=== PATIENT | female | born 1945 | race Caucasian/White ===

== ENCOUNTER → 2018-07-22 08:42 | Outpatient (CLI) | payer OTHER, SELFPAY ==
--- NOTE | 2018-07-22 08:44 | DI.RAD.S_ITS ---
PROCEDURE: XR MANDIBLE MIN 4V INDICATIONS: pain TECHNIQUE: 4 views of the mandible were acquired. COMPARISON: None. FINDINGS: Bones: No fractures or dislocations. No suspicious bony lesions. Asymmetric opacification of the right mastoid air cells compared to the left which could be better evaluated with CT. Soft tissues: Visualized sinuses appear clear. No suspicious soft tissue densities. IMPRESSION: Asymmetric opacification of the right mastoid air cells, technically age-indeterminate and of unclear clinical significance. Otherwise, unremarkable examination. If the patient's pain or symptoms persist recommend further evaluation with maxillofacial CT. Dictated by: Carloz Alicea M.D. on 07/22/2018 at 9:31 Approved by: Carloz Alicea M.D. on 07/22/2018 at 9:41
--- NOTE | 2018-07-22 08:44 | DI.RAD.S_ITS ---
PROCEDURE: XR CERVICAL SPINE 2V OR 3V INDICATIONS: pain TECHNIQUE: 4 view(s) of the cervical spine were acquired. COMPARISON: None. FINDINGS: Bones: No fractures or dislocations to the C7 level. The lateral masses of C1 appear intact on the odontoid view. No suspicious bony lesions. Chronic posterior paraspinal soft tissue ossification. Multilevel degenerative endplate sclerosis and spurring. Diffuse facet arthropathy. Diffuse mild narrowing of the cervical disc spaces. There is moderate narrowing of the C5-C6 disc space. Soft tissues: No prevertebral soft tissue swelling. Carotid atherosclerotic plaques incidentally noted. IMPRESSION: Diffuse mild to moderate cervical spondylosis and facet arthropathy. Dictated by: Carloz Alicea M.D. on 07/22/2018 at 9:41 Approved by: Carloz Alicea M.D. on 07/22/2018 at 9:42
== END ==
PROVIDERS: Family Provider Family Medicine; PCP Family Medicine; Visit Provider Family Medicine
DX: M54.2 Cervicalgia (principal); M47.812 Spondylosis without myelopathy or radiculopathy, cervical region; R68.84 Jaw pain
CPT/HCPCS: 70110; 72040

== ENCOUNTER → 2020-03-19 08:25 | Outpatient (CLI) | payer OTHER, SELFPAY ==
[2020-03-19 09:03] LABS: Add Manual Diff / Slide Review NO; Basophils Absolute Auto 0 /uL (0-100); Basophils Percent Auto 0.6 % (0-2); Eosinophils Absolute Auto 0 /uL (0-450); Eosinophils Percent Auto 0.5 % (2-4); Hematocrit 36.4 % (36-46); Hemoglobin 12.5 g/dL (12.0-16.0); Lymphocytes Absolute Auto 1500 /uL (1100-4500); Lymphocytes Percent Auto 31.7 % (25-40); Mean Corpuscular HGB Conc 34.2 % (30-36); Mean Corpuscular Hemoglobin 28.7 PG (26-34); Monocytes Absolute Auto 1100 /uL (0-900); Monocytes Percent Auto 23.7 % (3-14); Neutrophils Absolute Auto 2000 /uL (1500-7000); Neutrophils Percent Auto 43.5 % (50-75); Platelet Count 219 X10^3/uL (150-400); Red Blood Cell Count 4.34 X10^6/uL (4.0-5.2); Red Cell Distribution Width 14.1 % (11.6-14.8); White Blood Cell Count 4.7 X10^3/uL (4.5-11.0)
[2020-03-19 09:34] LABS: Alanine Aminotransferase 16 IU/L (<35); Albumin 4.4 g/dL (3.5-5.0); Albumin Globulin Ratio 1.3 (1.0-2.8); Alkaline Phosphatase 84 U/L (38-126); Aspartate Aminotransferase 28 IU/L (14-36); BUN Creatinine Ratio 18.5 (6-22); Bilirubin Total 0.6 mg/dL (0.2-1.3); Blood Urea Nitrogen 15 mg/dL (7-17); Calcium 9.9 mg/dL (8.4-10.2); Carbon Dioxide 33 mmol/L (22-32); Chloride 99 mmol/L (98-107); Cholesterol 198 mg/dL (140-199); Estimated Glomerular Filt Rate > 60.0 mL/min (>60); Globulin 3.5 g/dL (1.7-4.1); Glucose 112 mg/dL (80-110); HDL Cholesterol 50 mg/dL (40-60); HEMOLYSIS < 15 (0-50); LDL Cholesterol Calculated 111 mg/dL (<100); Potassium 3.8 mmol/L (3.4-5.1); Sodium 138 mmol/L (137-145); Total Protein 7.9 g/dL (6.3-8.2); Triglycerides 183 mg/dL (35-150)
[2020-03-19 10:43] LABS: Creatinine Urine Random 37.9 mg/dL
[2020-03-19 10:48] LABS: Microalbumi Creatinin Ratio Ur 50.1 ug/mg CR (<30); Microalbumin Urine Random 1.9 mg/dL (0-1.6)
[2020-03-19 10:52] LABS: C-Reactive Protein Quant 1.1 mg/dL (<1.0); Uric Acid 8.4 mg/dL (2.5-6.2)
[2020-03-19 11:20] LABS: Erythrocyte Sedimentation Rate 30 MM/HR (0-20)
== END ==
PROVIDERS: Family Provider Family Medicine; PCP Family Medicine; Referring Provider Family Medicine; Visit Provider Family Medicine
DX: I10 Essential (primary) hypertension (principal); I49.1 Atrial premature depolarization; Z13.220 Encounter for screening for lipoid disorders; M10.9 Gout, unspecified
CPT/HCPCS: 36415; 80053; 80061; 82043; 82570; 84550; 85025; 85651; 86140

== ENCOUNTER → 2021-02-03 18:18 | Outpatient (CLI) | payer OTHER, SELFPAY ==
--- NOTE | 2021-02-03 18:20 | DI.RAD.S_ITS ---
PROCEDURE: XR KUB INDICATIONS: L kidney stone TECHNIQUE: One view of the abdomen acquired. COMPARISON: None. FINDINGS: Surgical changes and devices: None. Bowel: Bowel gas pattern is normal. Soft tissues: 3 separate calcifications project over the lower pole the right kidney, largest measures 1.1 x 0.6 cm additional 3 mm calculus projects over the upper pole the left kidney. Surgical clips present in the right upper quadrant. Convex right thoracolumbar scoliosis present. Bones: No suspicious bony lesions. IMPRESSION: 1. Calculi projecting over the lower pole the right kidney and upper pole the left kidney may reflect renal calculi or fecal debris. Consider follow-up CT Approved by: Travis iXe M.D. on 02/03/2021 at 18:00
== END ==
PROVIDERS: Family Provider Family Medicine; PCP Family Medicine; Referring Provider Physician Assistant; Visit Provider Physician Assistant
DX: N20.0 Calculus of kidney (principal); R10.9 Unspecified abdominal pain
CPT/HCPCS: 74018

== ENCOUNTER → 2021-10-29 16:39 | Outpatient (CLI) | payer OTHER, SELFPAY ==
[2021-10-29 17:39] LABS: Add Manual Diff / Slide Review NO; Basophils Absolute Auto 0 /uL (0-100); Basophils Percent Auto 0.6 % (0-2); Eosinophils Absolute Auto 0 /uL (0-450); Eosinophils Percent Auto 0.7 % (2-4); Hematocrit 32.5 % (36-46); Hemoglobin 11.3 g/dL (12.0-16.0); Lymphocytes Absolute Auto 1800 /uL (1100-4500); Lymphocytes Percent Auto 33.2 % (25-40); Mean Corpuscular HGB Conc 34.9 % (30-36); Mean Corpuscular Hemoglobin 28.7 PG (26-34); Mean Corpuscular Volume 82.4 fL (80-100); Monocytes Absolute Auto 1200 /uL (0-900); Monocytes Percent Auto 22.3 % (3-14); Neutrophils Absolute Auto 2300 /uL (1500-7000); Neutrophils Percent Auto 43.2 % (50-75); Platelet Count 185 X10^3/uL (150-400); Red Blood Cell Count 3.94 X10^6/uL (4.0-5.2); Red Cell Distribution Width 14.4 % (11.6-14.8); White Blood Cell Count 5.4 X10^3/uL (4.5-11.0)
[2021-10-29 17:59] LABS: Alanine Aminotransferase 11 IU/L (<35); Albumin 4.4 g/dL (3.5-5.0); Albumin Globulin Ratio 1.3 (1.0-2.8); Alkaline Phosphatase 90 U/L (38-126); Aspartate Aminotransferase 22 IU/L (14-36); BUN Creatinine Ratio 16.4 (6-22); Bilirubin Total 0.5 mg/dL (0.2-1.3); Blood Urea Nitrogen 19 mg/dL (7-17); Calcium 10.5 mg/dL (8.4-10.2); Carbon Dioxide 26 mmol/L (22-32); Chloride 102 mmol/L (98-107); Estimated Glomerular Filt Rate 49 mL/min (>60); Globulin 3.5 g/dL (1.7-4.1); Glucose 109 mg/dL (80-110); HEMOLYSIS < 15 (0-50); Potassium 3.5 mmol/L (3.4-5.1); Sodium 140 mmol/L (137-145); Total Protein 7.9 g/dL (6.3-8.2)
== END ==
PROVIDERS: Family Provider Family Medicine; PCP Family Medicine; Referring Provider Physician Assistant; Visit Provider Physician Assistant
DX: K57.92 Diverticulitis of intestine, part unspecified, without perforation or abscess without bleeding (principal); R19.7 Diarrhea, unspecified
CPT/HCPCS: 36415; 80053; 85025

== ENCOUNTER → 2021-11-02 16:54 | Outpatient (CLI) | payer OTHER, SELFPAY ==
--- NOTE | 2021-11-02 16:55 | DI.RAD.S_ITS ---
PROCEDURE: XR ANKLE LT MIN 3V INDICATIONS: Left ankle injury TECHNIQUE: 3 views of the ankle were acquired. COMPARISON: None. FINDINGS: Bones: No fractures or dislocations. Ankle mortise is normally aligned. No suspicious bony lesions. Distal fibular corticated ossicle. Small calcaneal spur. Soft tissues: Lateral soft tissue swelling present. IMPRESSION: Soft tissue swelling without fracture or foreign body Distal fibular corticated small ossicle could be sequelae of prior trauma REFERENCE TEXT DELETE FROM FINAL REPORT Lauge Mohamud classification of fracture patterns. Each pattern has a distinctive fibular fx. Supination adduction: * stage 1: transverse fracture of lateral malleolus. * stage 2: vertical fracture at junctio of medial malleolus and tibial plafond. Pronation abduction: * stage 1: transverse fracture of medial malleolus. * stage 2: oblique fracture of fibular immediately above syndesmosis. Supination external rotation (most common): * stage 1: rupture of anterior tib-fib ligament at syndesmosis. * stage 2: spiral lateral malleolar fracture. * stage 3: posterior malleolar fracture or posterior tib-fib ligament rupture. * stage 4: medial malleolar fracture. Pronation external rotation: * stage 1: medial malleolar fx. * stage 2: rupture of anterior tib-fib ligament at syndesmosis. * stage 3: fibular fracture above syndesmosis (can be a Maisonneuve fx). * stage 4: posterior malleolar fracture or posterior tib-fib ligament rupture. Approved by: Travis Xie M.D. on 11/02/2021 at 16:18
== END ==
PROVIDERS: Family Provider Family Medicine; PCP Family Medicine; Referring Provider Registered Nurse; Visit Provider Registered Nurse
DX: M25.472 Effusion, left ankle (principal)
CPT/HCPCS: 73610

== ENCOUNTER → 2021-11-28 15:33 | Outpatient (CLI) | payer OTHER, SELFPAY ==
[2021-11-28 16:34] LABS: Alanine Aminotransferase 10 IU/L (<35); Albumin 4.3 g/dL (3.5-5.0); Albumin Globulin Ratio 1.2 (1.0-2.8); Alkaline Phosphatase 87 U/L (38-126); Aspartate Aminotransferase 20 IU/L (14-36); BUN Creatinine Ratio 14.4 (6-22); Bilirubin Total 0.4 mg/dL (0.2-1.3); Blood Urea Nitrogen 18 mg/dL (7-17); Calcium 9.5 mg/dL (8.4-10.2); Carbon Dioxide 27 mmol/L (22-32); Chloride 103 mmol/L (98-107); Estimated Glomerular Filt Rate 44 mL/min (>60); Globulin 3.6 g/dL (1.7-4.1); Glucose 118 mg/dL (80-110); HEMOLYSIS < 15 (0-50); Potassium 3.3 mmol/L (3.4-5.1); Sodium 142 mmol/L (137-145); Total Protein 7.9 g/dL (6.3-8.2)
== END ==
PROVIDERS: Family Provider Family Medicine; PCP Family Medicine; Referring Provider Family Medicine; Visit Provider Family Medicine
DX: N17.9 Acute kidney failure, unspecified (principal)
CPT/HCPCS: 36415; 80053

== ENCOUNTER → 2022-01-05 11:16 | Outpatient (CLI) | payer OTHER, SELFPAY ==
[2022-01-05 16:45] LABS: Alanine Aminotransferase 11 IU/L (<35); Albumin 4.3 g/dL (3.5-5.0); Albumin Globulin Ratio 1.2 (1.0-2.8); Alkaline Phosphatase 91 U/L (38-126); Aspartate Aminotransferase 22 IU/L (14-36); BUN Creatinine Ratio 17.7 (6-22); Bilirubin Total 0.5 mg/dL (0.2-1.3); Blood Urea Nitrogen 22 mg/dL (7-17); Calcium 9.7 mg/dL (8.4-10.2); Carbon Dioxide 23 mmol/L (22-32); Chloride 103 mmol/L (98-107); Estimated Glomerular Filt Rate 45 mL/min (>60); Globulin 3.5 g/dL (1.7-4.1); Glucose 98 mg/dL (80-110); HEMOLYSIS < 15 (0-50); Potassium 4.1 mmol/L (3.4-5.1); Sodium 138 mmol/L (137-145); Total Protein 7.8 g/dL (6.3-8.2)
== END ==
PROVIDERS: Family Provider Family Medicine; PCP Family Medicine; Referring Provider Family Medicine; Visit Provider Family Medicine
DX: N17.9 Acute kidney failure, unspecified (principal)
CPT/HCPCS: 36415; 80053

== ENCOUNTER → 2022-01-29 07:12 | Outpatient (CLI) | payer OTHER, SELFPAY ==
[2022-01-29 11:21] LABS: BUN Creatinine Ratio 11.8 (6-22); Blood Urea Nitrogen 13 mg/dL (7-17); Calcium 9.5 mg/dL (8.4-10.2); Carbon Dioxide 28 mmol/L (22-32); Chloride 105 mmol/L (98-107); Estimated Glomerular Filt Rate 52 mL/min (>60); Glucose 96 mg/dL (80-110); HEMOLYSIS < 15 (0-50); Potassium 4.2 mmol/L (3.4-5.1); Sodium 142 mmol/L (137-145)
== END ==
PROVIDERS: Family Provider Family Medicine; PCP Family Medicine; Referring Provider Family Medicine; Visit Provider Family Medicine
DX: I10 Essential (primary) hypertension (principal); N28.9 Disorder of kidney and ureter, unspecified
CPT/HCPCS: 36415; 80048

== ENCOUNTER → 2022-03-05 08:48 | Outpatient (CLI) | payer OTHER, SELFPAY | PROVIDERS: Family Provider Family Medicine; PCP Family Medicine; Visit Provider Physician Assistant Medical | DX: N39.0 Urinary tract infection, site not specified (principal) | CPT/HCPCS: 87077; 87086; 87186 ==

== ENCOUNTER → 2022-05-28 08:46 | Outpatient (CLI) | payer OTHER, SELFPAY ==
[2022-05-28 10:09] LABS: BUN Creatinine Ratio 14.4 (6-22); Blood Urea Nitrogen 16 mg/dL (7-17); Calcium 9.7 mg/dL (8.4-10.2); Carbon Dioxide 26 mmol/L (22-32); Chloride 107 mmol/L (98-107); Estimated Glomerular Filt Rate 51 mL/min (>60); Glucose 117 mg/dL (80-110); HEMOLYSIS < 15 (0-50); Potassium 4.8 mmol/L (3.4-5.1); Sodium 141 mmol/L (137-145)
== END ==
PROVIDERS: Family Provider Family Medicine; PCP Family Medicine; Referring Provider Family Medicine; Visit Provider Family Medicine
DX: I10 Essential (primary) hypertension (principal)
CPT/HCPCS: 36415; 80048

== ENCOUNTER → 2022-06-02 09:41 | Outpatient (CLI) | payer OTHER, SELFPAY ==
--- NOTE | 2022-06-02 10:28 | DI.RAD.S_ITS ---
PROCEDURE: XR KNEE RT 3V INDICATIONS: knee pain TECHNIQUE: 3 views of the knee were acquired. COMPARISON: [facility], , KNEE 4V RIGHT, 05/04/2017, 9:35. FINDINGS: Bones: No fractures or dislocations. No suspicious bony lesions. Mild tricompartmental joint space narrowing with associated osteophytosis. Soft tissues: No joint effusion. No suspicious soft tissue calcifications. IMPRESSION: Mild tricompartmental osteoarthritis. Dictated by: Ortiz Vivar M.D. on 06/02/2022 at 14:53 Approved by: Ortiz Vivar M.D. on 06/02/2022 at 14:53
[2022-06-02 11:10] LABS: Add Manual Diff / Slide Review NO; Basophils Absolute Auto 0 /uL (0-100); Basophils Percent Auto 0.7 % (0-2); Eosinophils Absolute Auto 0 /uL (0-450); Hematocrit 30.2 % (36-46); Hemoglobin 10.2 g/dL (12.0-16.0); Lymphocytes Absolute Auto 1300 /uL (1100-4500); Lymphocytes Percent Auto 27.8 % (25-40); Mean Corpuscular HGB Conc 33.7 % (30-36); Mean Corpuscular Hemoglobin 27.3 PG (26-34); Mean Corpuscular Volume 80.9 fL (80-100); Monocytes Absolute Auto 1300 /uL (0-900); Monocytes Percent Auto 27.3 % (3-14); Neutrophils Absolute Auto 2000 /uL (1500-7000); Neutrophils Percent Auto 43.2 % (50-75); Platelet Count 211 X10^3/uL (150-400); Red Blood Cell Count 3.74 X10^6/uL (4.0-5.2); Red Cell Distribution Width 16.7 % (11.6-14.8); White Blood Cell Count 4.6 X10^3/uL (4.5-11.0)
[2022-06-02 11:52] LABS: C-Reactive Protein Quant 2.2 mg/dL (<1.0); Cholesterol 195 mg/dL (140-199); HDL Cholesterol 46 mg/dL (40-60); LDL Cholesterol Calculated 111 mg/dL (<100); Triglycerides 189 mg/dL (35-150); Uric Acid 7.4 mg/dL (2.5-6.2)
[2022-06-03 06:37] LABS: Labcorp Hemoglobin (Hb) A1c 5.8 % (4.8-5.6)
== END ==
PROVIDERS: Family Provider Family Medicine; PCP Family Medicine; Referring Provider Family Medicine; Visit Provider Family Medicine
DX: I10 Essential (primary) hypertension (principal); M25.569 Pain in unspecified knee; R73.9 Hyperglycemia, unspecified; M17.11 Unilateral primary osteoarthritis, right knee
CPT/HCPCS: 36415; 73562; 80061; 83036; 84550; 85025; 86140

== ENCOUNTER → 2022-06-09 06:56 | Outpatient (CLI) | payer OTHER, SELFPAY ==
[2022-06-09 08:56] LABS: HEMOLYSIS < 15 (0-50); Iron 62 ug/dL (37-170)
[2022-06-09 09:09] LABS: Percent Iron Saturation 14 % (15-50); Total Iron Binding Capacity 436 ug/dL (265-497); Transferrin 317 mg/dL (206-381)
== END ==
PROVIDERS: Family Provider Family Medicine; PCP Family Medicine; Referring Provider Family Medicine; Visit Provider Family Medicine
DX: D64.9 Anemia, unspecified (principal)
CPT/HCPCS: 36415; 83540; 83550

== ENCOUNTER → 2022-06-23 06:55 | Outpatient (CLI) | payer OTHER, SELFPAY ==
[2022-06-23 08:56] LABS: Add Manual Diff / Slide Review NO; Basophils Absolute Auto 0 /uL (0-100); Eosinophils Absolute Auto 0 /uL (0-450); Eosinophils Percent Auto 1.1 % (2-4); Hematocrit 30.1 % (36-46); Hemoglobin 10.3 g/dL (12.0-16.0); Lymphocytes Absolute Auto 1400 /uL (1100-4500); Lymphocytes Percent Auto 33.8 % (25-40); Mean Corpuscular HGB Conc 34.1 % (30-36); Mean Corpuscular Hemoglobin 27.4 PG (26-34); Mean Corpuscular Volume 80.3 fL (80-100); Monocytes Absolute Auto 800 /uL (0-900); Monocytes Percent Auto 19.7 % (3-14); Neutrophils Absolute Auto 1900 /uL (1500-7000); Neutrophils Percent Auto 44.4 % (50-75); Platelet Count 175 X10^3/uL (150-400); Red Blood Cell Count 3.75 X10^6/uL (4.0-5.2); Red Cell Distribution Width 15.8 % (11.6-14.8); White Blood Cell Count 4.2 X10^3/uL (4.5-11.0)
== END ==
PROVIDERS: Family Provider Family Medicine; PCP Family Medicine; Referring Provider Family Medicine; Visit Provider Family Medicine
DX: D64.9 Anemia, unspecified (principal)
CPT/HCPCS: 36415; 85025

== ENCOUNTER → 2022-08-03 13:49 | Outpatient (CLI) | payer OTHER, SELFPAY ==
[2022-08-03 16:21] LABS: Add Manual Diff / Slide Review NO; Basophils Absolute Auto 0 /uL (0-100); Basophils Percent Auto 0.8 % (0-2); Eosinophils Absolute Auto 0 /uL (0-450); Eosinophils Percent Auto 0.8 % (2-4); Hematocrit 32.7 % (36-46); Hemoglobin 11.1 g/dL (12.0-16.0); Lymphocytes Absolute Auto 1600 /uL (1100-4500); Lymphocytes Percent Auto 38.2 % (25-40); Mean Corpuscular Hemoglobin 28.2 PG (26-34); Monocytes Absolute Auto 800 /uL (0-900); Monocytes Percent Auto 18.7 % (3-14); Neutrophils Absolute Auto 1800 /uL (1500-7000); Neutrophils Percent Auto 41.5 % (50-75); Platelet Count 173 X10^3/uL (150-400); Red Blood Cell Count 3.94 X10^6/uL (4.0-5.2); Red Cell Distribution Width 16.1 % (11.6-14.8); White Blood Cell Count 4.3 X10^3/uL (4.5-11.0)
== END ==
PROVIDERS: Family Provider Family Medicine; PCP Family Medicine; Referring Provider Family Medicine; Visit Provider Family Medicine
DX: D64.9 Anemia, unspecified (principal)
CPT/HCPCS: 36415; 85025

== ENCOUNTER 2023-03-21 04:48 | Emergency (ER) | payer OTHER, SELFPAY ==
[2023-03-21] VITALS (8 sets, daily range): BP systolic 197–214; BP diastolic 82–88; PULSE 62–73; RESP 18–22; TEMP 36.8; O2SAT 94–98; BMI 23.3
[2023-03-21 05:12] LABS: Add Manual Diff / Slide Review NO; Basophils Absolute Auto 100 /uL (0-100); Basophils Percent Auto 0.5 % (0-2); Eosinophils Absolute Auto 0 /uL (0-450); Hematocrit 39.1 % (36-46); Hemoglobin 13.2 g/dL (12.0-16.0); Lymphocytes Absolute Auto 1200 /uL (1100-4500); Lymphocytes Percent Auto 6.7 % (25-40); Mean Corpuscular HGB Conc 33.8 % (30-36); Mean Corpuscular Volume 82.9 fL (80-100); Monocytes Absolute Auto 1800 /uL (0-900); Monocytes Percent Auto 10.4 % (3-14); Neutrophils Absolute Auto 14400 /uL (1500-7000); Neutrophils Percent Auto 82.4 % (50-75); Platelet Count 206 X10^3/uL (150-400); Red Blood Cell Count 4.72 X10^6/uL (4.0-5.2); Red Cell Distribution Width 14.7 % (11.6-14.8); White Blood Cell Count 17.5 X10^3/uL (4.5-11.0)
[2023-03-21] MEDS: ONDANSETRON 4 MG/2 ML INJ IV (05:16)
--- NOTE | 2023-03-21 05:18 | ED.NAVMDI ---
HPI - Nausea/Vomiting/Diarrhea General Chief complaint: Nausea/Vomiting/Diarrhea Stated complaint: 3Days N/V/D, abd pain Time Seen by Provider: 03/21/23 04:59 Source: patient Mode of arrival: Ambulatory History of Present Illness HPI Narrative: Patient comes to the ED with abdominal discomfort associated with vomiting and diarrhea over the past 3 days. No hematemesis or hematochezia. No fever. Discomfort with vomiting but no chest pain or shortness of breath. She identifies the pain is mainly midepigastric. No urinary symptoms. She denies any chronic health conditions other than palpitations for which she takes propranolol. She denies diabetes or cancer. She denies any heart or lung disease or any intestinal disease at baseline. Related Data Home Medications Medication Instructions Recorded Confirmed aspirin 81 mg tablet,delayed 81 mg PO DAILY #0 tabs 10/29/21 01/23/23 release Previous Rx's Medication Instructions Recorded phenazopyridine 100 mg tablet 100 mg PO TID 6 doses #14 tabs 03/05/22 (Pyridium) omeprazole 20 mg capsule,delayed See Rx Instructions .Route 05/26/22 release .COMPLEX #90 caps valsartan 80 mg tablet 80 mg PO DAILY #90 tabs 05/29/22 alprazolam 0.25 mg tablet 0.25 mg PO BID PRN anxiety #20 tabs 10/26/22 hydroxyzine HCl 25 mg tablet 25 mg PO BEDTIME #14 tabs 11/04/22 atenolol 50 mg tablet 50 mg PO BID #180 tabs 02/01/23 ondansetron 4 mg disintegrating 4 mg PO Q6H #10 tabs 03/21/23 tablet Allergies Allergy/AdvReac Type Severity Reaction Status Date / Time ampicillin [AMPICILLIN] Allergy Severe Rash Verified 01/23/23 12:44 adhesive tape [ADHESIVE TAPE] Allergy Unknown Verified 01/23/23 12:44 Patient History Surgical History Status post cholecystectomy History of carpal tunnel repair Status post delivery Family History Mother Essential hypertension Social History Smoking Status: Never smoker second hand exposure: No alcohol intake: current substance use type: does not use Smoking Status: Never smoker alcohol intake frequency: holidays/special occasions only Substance Use Type: does not use Exam Narrative Exam Narrative: GENERAL: Alert, cooperative and in no distress. HEAD: Atraumatic. Normocephalic. EYES: Sclera are clear without icterus. Extraocular movements are full. ENT: No rhinorrhea. NECK: Supple. Full range of motion. CARDIOVASCULAR: Normal rate and rhythm without murmur gallop or rub. RESPIRATORY: Clear to auscultation. Breath sounds equal bilaterally. No wheezes, rales, or rhonchi. GASTROINTESTINAL: Abdomen soft, non-tender, nondistended. EXTREMITIES: No edema, full range of motion. No obvious trauma. BACK: Normal inspection NEURO: Nonfocal examination, normal speech, normal gait. SKIN: No rash or erythema of visible areas PSYCH: Normally oriented. Normal range of affect. Appropriate behavior Initial Vital Signs Initial Vital Signs: Vital Signs Pulse Rate 68 03/21/23 04:58 Blood Pressure 209/88 H 03/21/23 04:58 Pulse Oximetry 98 03/21/23 04:58 Course Orders Ordered: ED Orders 03/21/23 05:02 Complete Blood Count AUTO DIFF Stat Comprehensive Metabolic Panel Stat Lipase Stat 03/21/23 05:07 EKG-12 Lead Stat Sodium Chloride (Normal Saline 0.9%) 1,000 mls @ 1,000 mls/hr IV BOLUS ONE Stop: 03/21/23 07:00 Last Admin: 03/21/23 06:06 Dose: 1,000 mls/hr Ondansetron HCl (Ondansetron 4 Mg Odt) 4 mg PO NOW PRN PRN Reason: Nausea And Vomiting Ondansetron HCl (Ondansetron 4 Mg/2 Ml Inj) 4 mg IV NOW PRN PRN Reason: Nausea And Vomiting Last Admin: 03/21/23 05:16 Dose: 4 mg Documented By: FLOWER Discontinued Medications Sodium Chloride (Normal Saline 0.9%) 1,000 mls @ 1,000 mls/hr IV BOLUS ONE Stop: 03/21/23 06:16 Last Admin: 03/21/23 05:24 Dose: 1,000 mls/hr Documented By: YAZAN Ketorolac Tromethamine (Ketorolac 30 Mg/Ml Vial) 15 mg IV NOW ONE Stop: 03/21/23 06:02 Last Admin: 03/21/23 06:07 Dose: 15 mg Loperamide HCl (Loperamide 2 Mg Capsule) 4 mg PO NOW ONE Stop: 03/21/23 05:18 Last Admin: 03/21/23 05:24 Dose: 4 mg Documented By: YAZAN Pantoprazole Sodium (Pantoprazole 40 Mg Vial) 40 mg IV NOW ONE Stop: 03/21/23 06:02 Last Admin: 03/21/23 06:06 Dose: 40 mg Vital Signs Vital signs: Vital Signs - 8 hr 03/21/23 04:58 03/21/23 04:58 03/21/23 05:00 Temperature Pulse Rate 68 73 Respiratory Rate Blood Pressure 209/88 H Pulse Oximetry 98 97 Oxygen Delivery Method Room Air 03/21/23 05:02 03/21/23 05:30 03/21/23 05:54 Temperature 98.2 F Pulse Rate 62 63 Respiratory Rate 18 Blood Pressure 209/88 H 214/86 H Pulse Oximetry 97 94 Oxygen Delivery Method Room Air Room Air 03/21/23 05:54 03/21/23 06:00 03/21/23 06:00 Temperature Pulse Rate 62 62 Respiratory Rate Blood Pressure 197/82 H Pulse Oximetry 96 98 Oxygen Delivery Method Room Air MDM - Nausea/Vomiting/Diarrhea Lab Data 03/21/23 05:02 03/21/23 05:02 Labs: Lab Results 03/21/23 Range/Units 05:02 WBC 17.5 H (4.5-11.0) X10^3/uL RBC 4.72 (4.0-5.2) X10^6/uL Hgb 13.2 (12.0-16.0) g/dL Hct 39.1 (36-46) % MCV 82.9 (80-100) fL MCH 28.0 (26-34) PG MCHC 33.8 (30-36) % RDW 14.7 (11.6-14.8) % Plt Count 206 (150-400) X10^3/uL Neut % (Auto) 82.4 H (50-75) % Lymph % (Auto) 6.7 L (25-40) % [place] % (Auto) 10.4 (3-14) % Eos % (Auto) 0.0 L (2-4) % Baso % (Auto) 0.5 (0-2) % Neut # (Auto) 05756 H (4882-4102) /uL Lymph # (Auto) 1200 (4618-7637) /uL [place] # (Auto) 1800 H (0-900) /uL Eos # (Auto) 0 (0-450) /uL Baso # (Auto) 100 (0-100) /uL Sodium 134 L (137-145) mmol/L Potassium 3.8 (3.4-5.1) mmol/L Chloride 91 L (98-107) mmol/L Carbon Dioxide 28 (22-32) mmol/L BUN 42 H (7-17) mg/dL Creatinine 1.57 H (0.52-1.04) mg/dL Estimated GFR 34 L (>60) mL/min BUN/Creatinine Ratio 26.8 H (6-22) Glucose 149 H (80-110) mg/dL Calcium 12.1 H (8.4-10.2) mg/dL Total Bilirubin 1.0 (0.2-1.3) mg/dL AST 27 (14-36) IU/L ALT 16 (<35) IU/L Alkaline Phosphatase 68 (38-126) U/L Total Protein 9.0 H (6.3-8.2) g/dL Albumin 4.9 (3.5-5.0) g/dL Globulin 4.1 (1.7-4.1) g/dL Albumin/Globulin Ratio 1.2 (1.0-2.8) Lipase 109 (23-300) U/L ECG Data Interpretation: ECG obtained at 5:19 a.m. shows sinus rhythm at 70. This ECG is normal. MDM Narrative Medical decision making narrative: After 1 L of saline infused and Zofran and loperamide given the patient feels somewhat better but still has midepigastric discomfort. Laboratory data looks like significant dehydration. Will give a 2 L of IV fluid and Protonix and Toradol and reassess. 0630 Will discharge with symptomatic control medications. Discharge Plan Departure Patient Disposition: Home Clinical Impression: Gastroenteritis Instructions: DI for Dehydration -- Adult, DI for Vomiting -- Adult Activity Restrictions/Additional Instructions: You had significant dehydration. We have given you 2 L of saline intravenously. Hopefully this will help you feel better. We have also administered antidiarrhea medicine and anti nausea medicine. You also received ketorolac for pain along with Protonix as a potent anti acid medication. No immediately dangerous condition is suspected at this time. I recommend frequent sips of clear liquids to keep yourself hydrated. Use ondansetron as needed for nausea. Take Tylenol as needed for pain. I also recommend loperamide (Imodium) as instructed on the packaging for diarrhea. Specifically, take 1 tablet with each diarrheal stool up to 8 each day. Return to the ED for bloody stools or bloody emesis or fever or worsening pain or concerns for worsening dehydration. Otherwise you should expect to improve over the next 1 or 2 or 3 days. Follow-up before the weekend if symptoms persist Prescriptions: New ondansetron 4 mg tablet,disintegrating 4 mg PO Q6H Qty: 10 0RF No Action phenazopyridine [Pyridium] 100 mg tablet 100 mg PO TID Qty: 14 0RF aspirin 81 mg tablet,delayed release (DR/EC) 81 mg PO DAILY Qty: 0 omeprazole 20 mg capsule,delayed release(DR/EC) See Rx Instructions .ROUTE .COMPLEX Qty: 90 3RF Hold Instructions: error Dose Instruction: take 1 capsule by mouth once daily Rx Instructions: take 1 capsule by mouth once daily valsartan 80 mg tablet 80 mg PO DAILY Qty: 90 0RF Rx Instructions: please use this in substitution of the previously prescribed Olmesartan alprazolam 0.25 mg tablet 0.25 mg PO BID PRN (Reason: anxiety) Qty: 20 0RF hydroxyzine HCl 25 mg tablet 25 mg PO BEDTIME Qty: 14 0RF atenolol 50 mg tablet 50 mg PO BID Qty: 180 2RF Referrals: Chrissy Petersen MD [Primary Care Provider] - Stand Alone Forms: Patient Portal/API
[2023-03-21 05:24] LABS: Alanine Aminotransferase 16 IU/L (<35); Albumin 4.9 g/dL (3.5-5.0); Albumin Globulin Ratio 1.2 (1.0-2.8); Alkaline Phosphatase 68 U/L (38-126); Aspartate Aminotransferase 27 IU/L (14-36); BUN Creatinine Ratio 26.8 (6-22); Blood Urea Nitrogen 42 mg/dL (7-17); Calcium 12.1 mg/dL (8.4-10.2); Carbon Dioxide 28 mmol/L (22-32); Chloride 91 mmol/L (98-107); Estimated Glomerular Filt Rate 34 mL/min (>60); Globulin 4.1 g/dL (1.7-4.1); Glucose 149 mg/dL (80-110); HEMOLYSIS < 15 (0-50); Lipase 109 U/L (23-300); Potassium 3.8 mmol/L (3.4-5.1); Sodium 134 mmol/L (137-145)
[2023-03-21] MEDS: SODIUM CHLORIDE 0.9% 1,000 ML 1000 ML IV ×2 (05:24→06:06)
[2023-03-21] MEDS: LOPERAMIDE 2 MG CAPSULE 4 MG PO (05:24)
[2023-03-21] MEDS: PANTOPRAZOLE 40 MG VIAL IV (06:06)
[2023-03-21] MEDS: KETOROLAC 30 MG/ML VIAL 15 MG IV (06:07)
== END 2023-03-21 06:48 | disposition home or self-care (01) ==
PROVIDERS: Emergency Provider Family Medicine Addiction Medicine; Family Provider Family Medicine; PCP Family Medicine
DX: K52.9 Noninfective gastroenteritis and colitis, unspecified (principal); R11.2 Nausea with vomiting, unspecified; R10.9 Unspecified abdominal pain
CPT/HCPCS: 36415; 80053; 83690; 85025; 93005; 93010; 96361; 96374; 96375; 99284; C9113; J1885; J2405

== ENCOUNTER 2023-06-24 11:18 | Emergency (ER) | payer OTHER, SELFPAY ==
[2023-06-24] VITALS (7 sets, daily range): BP systolic 180–220; BP diastolic 78–109; PULSE 66–78; RESP 16; TEMP 36.7; O2SAT 92–99; BMI 31.8
--- NOTE | 2023-06-24 11:32 | DI.CT.S_ITS ---
PROCEDURE: CT HEAD/BRAIN WO CON INDICATIONS: Stroke symptoms not a TPA candidate TECHNIQUE: Noncontrast 4.5 mm thick angled axial sections acquired from the foramen magnum to the vertex, with coronal and sagittal reformats. For radiation dose reduction, the following was used: automated exposure control, adjustment of mA and/or kV according to patient size. COMPARISON: None. FINDINGS: Image quality: Diagnostic. CSF spaces: Basal cisterns are patent. No extra-axial fluid collections. The ventricles are symmetric in size and shape. Brain: No intracranial bleeds or masses. There is cerebral volume loss for age, with resultant ventricular and sulcal prominence. There are periventricular and deep white matter chronic small vessel ischemic changes. There is intracranial internal carotid artery atherosclerosis. Skull and face: Calvarium and visualized facial bones appear intact, without suspicious lesions. Hyperostosis frontalis is present. Sinuses: Visualized sinuses and mastoids are clear. IMPRESSION: 1. No acute intracranial process. 2. Moderate atrophy and chronic microvascular ischemic changes. Dictated by: Angeles Hawk M.D. on 06/24/2023 at 12:07 Approved by: Angeles Hawk M.D. on 06/24/2023 at 12:07
--- NOTE | 2023-06-24 11:32 | DI.RAD.S_ITS ---
PROCEDURE: XR CHEST 1V INDICATIONS: Possible stroke TECHNIQUE: One view of the chest was acquired. COMPARISON: None. FINDINGS: Surgical changes and devices: None. Lungs and pleura: Lungs are clear. No pleural effusions or pneumothorax. Mediastinum: Mediastinal contours appear normal. Heart size is normal. Bones and chest wall: No suspicious bony lesions. Overlying soft tissues appear unremarkable. IMPRESSION: No acute cardiopulmonary abnormality is seen. Dictated by: Susie Cortés MD, PhD on 06/24/2023 at 11:48 Approved by: Susie Cortés MD, PhD on 06/24/2023 at 11:49
--- NOTE | 2023-06-24 12:39 | PC.NURSE ---
patient was watching tv and the screen became pixillated then she was cleaning the bathroom and she look in the mirror and she had 4 eyes. The symptoms have since resolved. She denies any other symptoms. She is able to ambulate to the bathroom independently.
[2023-06-24 12:41] LABS: Ur Creatinine Normal (Normal); Ur Specific Gravity Normal (Normal); Urine Amphetamines Negative (Negative); Urine Cocaine Negative (Negative); Urine Opiates Negative (Negative); Urine THC Negative (Negative); Urine pH Normal (Normal)
[2023-06-24 12:42] LABS: Urine Barbiturates Negative (Negative); Urine Benzodiazepines Negative (Negative); Urine MDMA Negative (Negative); Urine Methadone Negative (Negative); Urine Methamphetamines Negative (Negative); Urine Oxycodone Negative (Negative); Urine Phencyclidine Negative (Negative); Urine Tricyclic Antidepressant Negative (Negative)
[2023-06-24 12:51] LABS: Prothrombin Time 11.8 SECONDS (9.4-12.5)
[2023-06-24 12:52] LABS: Add Manual Diff / Slide Review YES; Hematocrit 31.5 % (36-46); Hemoglobin 10.7 g/dL (12.0-16.0); Mean Corpuscular HGB Conc 33.9 % (30-36); Mean Corpuscular Hemoglobin 29.1 PG (26-34); Mean Corpuscular Volume 85.8 fL (80-100); Platelet Count 159 X10^3/uL (150-400); Red Blood Cell Count 3.68 X10^6/uL (4.0-5.2); Red Cell Distribution Width 14.8 % (11.6-14.8)
[2023-06-24 12:53] LABS: PTT Partial Thromboplastin Tim 32 SECONDS (25.1-36.5)
[2023-06-24 12:55] LABS: Alanine Aminotransferase 13 IU/L (<35); Albumin 4.7 g/dL (3.5-5.0); Albumin Globulin Ratio 1.4 (1.0-2.8); Alkaline Phosphatase 86 U/L (38-126); Aspartate Aminotransferase 27 IU/L (14-36); Bilirubin Total 0.7 mg/dL (0.2-1.3); Blood Urea Nitrogen 15 mg/dL (7-17); Calcium 10.1 mg/dL (8.4-10.2); Carbon Dioxide 24 mmol/L (22-32); Chloride 109 mmol/L (98-107); Creatine Kinase 102 U/L (30-135); Estimated Glomerular Filt Rate 53 mL/min (>60); Globulin 3.3 g/dL (1.7-4.1); Glucose 103 mg/dL (80-110); HEMOLYSIS < 15 (0-50); Magnesium 1.8 mg/dL (1.6-2.3); Potassium 3.8 mmol/L (3.4-5.1); Sodium 141 mmol/L (137-145)
[2023-06-24 13:06] LABS: Troponin I < 0.012 ng/mL (0.01-0.034)
[2023-06-24 13:11] LABS: Neutrophils Absolute Manual 2750 /uL (3000-5900); RBC Morphology Normal Morphology; Total Cells Counted 100
--- NOTE | 2023-06-24 13:55 | ED_ITS ---
HPI - Neuro Symptoms/Deficit General Chief Complaint: Neuro Symptoms/Deficit Stated Complaint: double vision Time Seen by Provider: 06/24/23 13:54 Source: patient Mode of arrival: Ambulatory Limitations: no limitations History of Present Illness HPI Narrative: 78-year-old female on atenolol for PACs PVCs, omeprazole and aspirin 81 mg daily who presents with complaint of her TV fixed dilated yesterday. Patient does state that it does not on and off so it may have just been the TV. 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 She states this was very brief for a moment and then resolved. She has not had any other vision changes. She has had a little bit of a mild headache but she has had some sinus drainage. She did take some Benadryl today for it. She denies any neck pain, no chest pain or shortness of breath, no numbness tingling or weakness in her extremities, no gait issues. No movement issues. No difficulty with speech. She denies any issues with bowel movements or urination. She states she is on atenolol twice daily for PVCs for the past 40 years. She used to be on hydrochlorothiazide but was stopped in the past, she is on omeprazole and aspirin 81 mg daily. She has had a cholecystectomy, interventions for kidney stones and . States allergic to ampicillin latex. No tobacco, alcohol or recreational drugs. Dr. Petersen is her primary care physician. She has been quite stressed about some personal family issues that indirectly affect her over the past year and has occasionally taken hydroxyzine and found that helpful. On Anticoagulants: No Related Data Home Medications Medication Instructions Recorded Confirmed aspirin 81 mg tablet,delayed 81 mg PO DAILY #0 tabs 10/29/21 03/31/23 release Previous Rx's Medication Instructions Recorded hydroxyzine HCl 25 mg tablet 25 mg PO BEDTIME #14 tabs 11/04/22 atenolol 50 mg tablet 50 mg PO BID #180 tabs 02/01/23 omeprazole 20 mg capsule,delayed See Rx Instructions .Route 06/22/23 release .COMPLEX #90 caps hydrochlorothiazide 25 mg tablet 25 mg PO DAILY #20 tabs 06/24/23 hydroxyzine HCl 25 mg tablet 25 mg PO QID PRN anxiety #10 tabs 06/24/23 Allergies Allergy/AdvReac Type Severity Reaction Status Date / Time ampicillin [AMPICILLIN] Allergy Severe Rash Verified 03/31/23 08:35 adhesive tape [ADHESIVE TAPE] Allergy Unknown Verified 03/31/23 08:35 Review of Systems Review of Systems ROS Unobtainable: All systems reviewed & are unremarkable except as noted in HPI and below Hematologic/Lymphatic On Anticoagulants: No Patient History Surgical History Status post cholecystectomy History of carpal tunnel repair Status post delivery Family History Mother Essential hypertension Social History Smoking Status: Never smoker second hand exposure: No alcohol intake: current substance use type: does not use Smoking Status: Never smoker alcohol intake frequency: holidays/special occasions only Substance Use Type: does not use Exam Narrative Exam Narrative: GEN: well nourished, well appearing female, alert and oriented x 3, patient appears to be in mild distress. HEENT: Atraumatic, pupils are equal round reactive to light, extraocular movements are intact, nares are clear, TMs are clear with no fluid, there is no conjunctival pallor. Throat is clear without any exudates, erythema, tonsillar enlargement or uvular deviation, no facial droop. HEART: Regular rate and rhythm without murmur, clicks, rubs. Pulses are equal in upper and lower extremities LUNGS:Lungs clear to auscultation, no wheezes, rales, crackles, chest moves symmetrically ABD:bowel sounds normal, soft, non-tender, no guarding, rebound, rigidity, no masses noted, no hepatosplenomegaly :No CVA tenderness MSCL: Non-tender, no muscle atrophy, muscles strength 5/5 upper and lower extremities, full range of motion, normal gait NEURO:CN 2-12 intact, sensation normal, Finger nose finger test normal, heel vargas test normal SKIN: No rash, erythema or other skin changes. Initial Vital Signs Initial Vital Signs: Vital Signs Temperature 98.0 F 06/24/23 11:23 Pulse Rate 78 06/24/23 11:23 Respiratory Rate 16 06/24/23 11:23 Blood Pressure 220/88 H 06/24/23 11:23 Pulse Oximetry 99 06/24/23 11:23 Oxygen Delivery Method Room Air 06/24/23 11:23 Course Orders Ordered: ED Orders 06/24/23 11:32 CT head/brain wo con Stat XR chest 1V Stat EKG-12 Lead Stat 06/24/23 12:23 Complete Blood Count AUTO DIFF Stat Comprehensive Metabolic Panel Stat Magnesium Stat PTT Partial Thromboplastin Jovanni Stat Prothrombin Time INR Stat Troponin & CK Cardiac Panel Stat 06/24/23 12:24 Urine Drug Screen, Rapid Stat Urine Microscopic Stat 06/24/23 15:06 Consult to TEAM PRIMARY CARE PHYSICIAN - Campaign Manager Stat Discontinued Medications Ondansetron HCl (Ondansetron 4 Mg/2 Ml Inj) 4 mg IV NOW PRN PRN Reason: Nausea And Vomiting Ondansetron HCl (Ondansetron 4 Mg Odt) 4 mg SL NOW PRN PRN Reason: Nausea And Vomiting Vital Signs Vital signs: Vital Signs - 8 hr 06/24/23 11:23 06/24/23 12:25 06/24/23 12:27 Temperature 98.0 F Pulse Rate 78 71 68 Respiratory Rate 16 Blood Pressure 220/88 H Pulse Oximetry 99 92 99 Oxygen Delivery Method Room Air 06/24/23 12:27 06/24/23 12:30 06/24/23 12:30 Temperature Pulse Rate 66 Respiratory Rate Blood Pressure 209/82 H 186/78 H Pulse Oximetry 97 Oxygen Delivery Method 06/24/23 14:44 06/24/23 14:44 06/24/23 15:00 Temperature Pulse Rate 66 75 Respiratory Rate Blood Pressure 200/84 H Pulse Oximetry 97 98 Oxygen Delivery Method 06/24/23 15:13 06/24/23 15:13 Temperature Pulse Rate 76 Respiratory Rate Blood Pressure 180/109 H Pulse Oximetry 98 Oxygen Delivery Method MDM - Neuro Symptoms/Deficit Lab Data 06/24/23 12:23 06/24/23 12:23 Labs: Lab Results 06/24/23 06/24/23 Range/Units 12:23 12:24 WBC 5.0 (4.5-11.0) X10^3/uL RBC 3.68 L (4.0-5.2) X10^6/uL Hgb 10.7 L (12.0-16.0) g/dL Hct 31.5 L (36-46) % MCV 85.8 (80-100) fL MCH 29.1 (26-34) PG MCHC 33.9 (30-36) % RDW 14.8 (11.6-14.8) % Plt Count 159 (150-400) X10^3/uL Neut % (Auto) Not Reportable Lymph % (Auto) Not Reportable Long % (Auto) Not Reportable Eos % (Auto) Not Reportable Baso % (Auto) Not Reportable Lymph # (Auto) Not Reportable Long # (Auto) Not Reportable Baso # (Auto) Not Reportable Total Counted 100 Seg Neutrophils % 54.0 (38-70) % Band Neutrophils % 1.0 L (3-7) % Lymphocytes % (Manual) 31.0 (25-45) % Monocytes % (Manual) 14.0 H (2-11) % Neutrophils # (Manual) 2750 L (6572-6123) /uL RBC Morphology Normal morphology PT 11.8 (9.4-12.5) SECONDS INR 1.0 (0.9-1.3) APTT 32 (25.1-36.5) SECONDS Sodium 141 (137-145) mmol/L Potassium 3.8 (3.4-5.1) mmol/L Chloride 109 H (98-107) mmol/L Carbon Dioxide 24 (22-32) mmol/L BUN 15 (7-17) mg/dL Creatinine 1.07 H (0.52-1.04) mg/dL Estimated GFR 53 L (>60) mL/min BUN/Creatinine Ratio 14.0 (6-22) Glucose 103 (80-110) mg/dL Calcium 10.1 (8.4-10.2) mg/dL Magnesium 1.8 (1.6-2.3) mg/dL Total Bilirubin 0.7 (0.2-1.3) mg/dL AST 27 (14-36) IU/L ALT 13 (<35) IU/L Alkaline Phosphatase 86 (38-126) U/L Total Creatine Kinase 102 (30-135) U/L Troponin I < 0.012 (0.01-0.034) ng/mL Total Protein 8.0 (6.3-8.2) g/dL Albumin 4.7 (3.5-5.0) g/dL Globulin 3.3 (1.7-4.1) g/dL Albumin/Globulin Ratio 1.4 (1.0-2.8) Urine RBC 0-1/hpf (0-5/HPF) Urine WBC None seen (0-5/HPF) Ur Squamous Epith Cells 0-1 /hpf (0-5/HPF) Urine Bacteria None seen (None) Ur Culture Indicated? Cult not indicated Vol Urine Centrifuged 10ml (spun) U Opiates 300ng/mL cut Negative (Negative) Ur Oxycodone Screen Negative (Negative) Urine Methadone Screen Negative (Negative) Ur Barbiturates Screen Negative (Negative) U Tricyclic Antidepress Negative (Negative) Ur Phencyclidine Scrn Negative (Negative) Ur Amphetamines Screen Negative (Negative) U Methamphetamines Scrn Negative (Negative) Ur MDMA Scrn (Ecstasy) Negative (Negative) U Benzodiazepines Scrn Negative (Negative) Urine Cocaine Screen Negative (Negative) U Marijuana (THC) Screen Negative (Negative) Urine pH Normal (Normal) Urine Specific [place] Normal (Normal) Ur Creatinine Normal (Normal) Urine Dip Bedside Urine Glucose Negative Bedside Urine Bilirubin - Negative Bedside Urine Ketone - Negative Urine Specific [place] 1.015 Bedside Urine Occult Blood + Bedside Urine pH 6.0 Bedside Urine Protein - Negative Bedside Urine Urobilinogen - Negative Bedside Urine Nitrite - Negative Bedside Urine Leukocytes - Negative Esterase Imaging Data CT scan - head: Radiologist's Impression: Adore Gaspar??78??F??1945 ? Allergy/Adv: ampicillin, adhesive tape Close Head CT (Signed) Angeles Hawk - 06/24/23 Chest X-Ray (Signed) Susie Cortés - 06/24/23 Knee X-Ray (Signed) Ortiz Vivar - 06/02/22 Ankle X-Ray (Signed) Travis Xie - 11/02/21 KUB X-Ray (Signed) Travis Xie - 02/03/21 Mandible X-Ray (Signed) Carloz Alicea - 07/22/18 Cervical Spine X-Ray (Signed) Carloz Alicea - 07/22/18 Launch?[address] [address] [address] Scan Report Signed Patient: Adore Gaspar MR#: [id number] : 1945 Acct:[id number] Age/Sex: 78 / F Date of Service: 06/24/23 Loc: ED Accession Number: [id number] Procedure: CT head/brain wo con Ordering Provider: Bernadette Dumont D.O. PROCEDURE: CT HEAD/BRAIN WO CON INDICATIONS: Stroke symptoms not a TPA candidate TECHNIQUE: Noncontrast 4.5 mm thick angled axial sections acquired from the foramen magnum to the vertex, with coronal and sagittal reformats. For radiation dose reduction, the following was used: automated exposure control, adjustment of mA and/or kV according to patient size. COMPARISON: None. FINDINGS: Image quality: Diagnostic. CSF spaces: Basal cisterns are patent. No extra-axial fluid collections. The ventricles are symmetric in size and shape. Brain: No intracranial bleeds or masses. There is cerebral volume loss for age, with resultant ventricular and sulcal prominence. There are periventricular and deep white matter chronic small vessel ischemic changes. There is intracranial internal carotid artery atherosclerosis. Skull and face: Calvarium and visualized facial bones appear intact, without suspicious lesions. Hyperostosis frontalis is present. Sinuses: Visualized sinuses and mastoids are clear. IMPRESSION: 1. No acute intracranial process. 2. Moderate atrophy and chronic microvascular ischemic changes. Dictated by: Angeles Hawk M.D. on 06/24/2023 at 12:07 Approved by: Angeles Hawk M.D. on 06/24/2023 at 12:07 Chest x-ray: Radiologist's Impression: Close Head CT (Signed) Angeles Hawk - 06/24/23 Chest X-Ray (Signed) Susie Cortés - 06/24/23 Knee X-Ray (Signed) Ortiz Vivar - 06/02/22 Ankle X-Ray (Signed) Travis Xie - 11/02/21 KUB X-Ray (Signed) Travis Xie - 02/03/21 Mandible X-Ray (Signed) Carloz Alicea - 07/22/18 Cervical Spine X-Ray (Signed) Carloz Alicea - 07/22/[address] [address] XRay Report Signed Patient: Adore Gaspar MR#: [id number] : 1945 Acct:[id number] Age/Sex: 78 / F Date of Service: 06/24/23 Loc: ED Accession Number: [id number] Procedure: XR chest 1V Ordering Provider: Bernadette Dumont D.O. PROCEDURE: XR CHEST 1V INDICATIONS: Possible stroke TECHNIQUE: One view of the chest was acquired. COMPARISON: None. FINDINGS: Surgical changes and devices: None. Lungs and pleura: Lungs are clear. No pleural effusions or pneumothorax. Mediastinum: Mediastinal contours appear normal. Heart size is normal. Bones and chest wall: No suspicious bony lesions. Overlying soft tissues appear unremarkable. IMPRESSION: No acute cardiopulmonary abnormality is seen. Dictated by: Susie Cortés MD, PhD on 06/24/2023 at 11:48 Approved by: Susie Cortés MD, PhD on 06/24/2023 at 11:49 ECG Data Attestation: I personally reviewed and interpreted this ECG as follows: Prior ECG tracings: available for review Interpretation: Sinus rhythm rate of 64 VT 146 QRS is 78 QTC 398, no acute ST changes appreciated. Patient has prior from 03/21/2023 overall patient has similar but some nonspecific change. MDM Narrative Medical decision making narrative: Labs white count of 5 hemoglobin of 10 was 13 in March but has been up and down in the 10 range before platelets of 159. Predominance of monocytes. INR is 1, creatinine is 1.07 improved from March, sodium of 141 potassium 3 8 chloride 109 CO2 of 24 BUN 15, glucose of 103 calcium 10.1 Mag is 1.8 normal LFTs, negative troponin. Head CT shows no acute change moderate atrophy chronic microvascular ischemic changes. Chest x-ray shows no acute change. EKG shows nonspecific change. Patient has been hypertensive throughout her stay, after discussion she did stop her HCTZ in the past on direction of her physician. We will restart today she was taking 25 mg with plan for recheck in the next week for blood pressure and BNP. Patient has had hydroxyzine for anxiety she has had some factors that has been very stressful for her. She was open to meeting with TEAM PRIMARY CARE PHYSICIAN for potential counseling resources. Patient vision change yesterday actually sounds like more her TV she states it picks lights on and off sometimes she has not sure was actually her eyes. Today she had have a very short brief episode of double vision that resolved without any other neurologic changes although hypertensive patient has negative head CT otherwise normal neurologic exam. Discharge Plan Departure Patient Disposition: Home Clinical Impression: Double vision Activity Restrictions/Additional Instructions: Please follow up with Dr. Petersen for recheck of your blood pressure and renal function. Please add hydrochlorothiazide to your regular medications, take 1 tablet daily. You can take hydroxyzine 1 tablet every 6-8 hours as needed for anxiety. Prescription sent to [facility] in [place]. Please return for severe headaches, persistent or recurrent vision changes, new numbness, tingling or weakness, facial droop, difficulty with speech, passing out, persistent vomiting or other new or concerning changes. Prescriptions: New hydrochlorothiazide 25 mg tablet 25 mg PO DAILY Qty: 20 0RF hydroxyzine HCl 25 mg tablet 25 mg PO QID PRN (Reason: anxiety) Qty: 10 0RF No Action aspirin 81 mg tablet,delayed release (DR/EC) 81 mg PO DAILY Qty: 0 hydroxyzine HCl 25 mg tablet 25 mg PO BEDTIME Qty: 14 0RF atenolol 50 mg tablet 50 mg PO BID Qty: 180 2RF omeprazole 20 mg capsule,delayed release(DR/EC) See Rx Instructions .ROUTE .COMPLEX Qty: 90 3RF Hold Instructions: error Dose Instruction: take 1 capsule by mouth once daily Rx Instructions: take 1 capsule by mouth once daily Referrals: Chrissy Petersen MD [Primary Care Provider] - Stand Alone Forms: Patient Portal/API
[2023-06-24 14:50] LABS: Bacteria Urine None Seen; Culture Indicated Urine Cult Not Indicated; RBC Urine 0-1/HPF (0-5/HPF); Squamous Epithelial Cell Urine 0-1 /HPF (0-5/HPF); Urine Volume 10mL (spun); WBC Urine None Seen (0-5/HPF)
--- NOTE | 2023-06-24 15:30 | CM.SWNOTE ---
ED [employer] BUILD[employer] ARCHITECT Note Patient is 78 y/o female who presents to ED via POV due to concern for double vision. Patient's PCP is Dr. Petersen, Patient's has [facility] insurance. COMM[employer] BUILDING ARCHITECT receives consult from ED provider due to patient's concern for increase in life stressors due to family issues in the last year. COMMERCIAL GREEN BUILDING ARCHITECT enters room to meet with patient, patient presents as A/Ox4. Patient endorses that she has been able to talk with some family members and friends about the life stressors and that has been helpful. Patient states that her tends to present with a negative perspective about things so she does not feel like she can talk to him. Patient states she has been spending time talking with friends, going on walks, going outside and has found that to be quite helpful. Patient states that Dr. Petersen prescribed hydroxyzine and patient found that to be helpful. COMMERCIAL GRE[employer] BUILDING ARCHITECT encourages patient to continue to talk to friends, go on walks and take medication as prescribed. COMM[employer] BUILDING ARCHITECT discusses the option of outpatient BH and patient denies need for that, patient denies any further needs from COMM[employer]ILD[employer] ARCHITECT. Patient states it has been helpful to talk about it more today with ED provider and [employer]ILD[employer] ARCHITECT. Patient has questions about her Hydrochlorothiazide medication and relays this to ED provider, Dr. Dumont recommends patient go back on medication due to patient's high blood pressure. COMMER[employer] BUILD[employer] ARCHITECT calls Dr. Petersen's office regarding Dr. Dumont's recommendation. Plan: patient to d/c to home upon medical clearance, patient to continue engaging in effective coping strategies, patient to f/u with PCP and take rx as prescribed. ALEM Acosta
== END 2023-06-24 15:26 | disposition home or self-care (01) ==
PROVIDERS: Emergency Provider Emergency Medicine; Family Provider Family Medicine; PCP Family Medicine
DX: H53.2 Diplopia (principal); R29.818 Other symptoms and signs involving the nervous system
CPT/HCPCS: 36415; 70450; 71045; 80053; 80305; 81003; 81015; 82550; 83735; 84484; 85007; 85025; 85610; 85730; 93005; 93010; 99284; 99285

== ENCOUNTER → 2023-07-15 13:46 | Outpatient (CLI) | payer OTHER, SELFPAY | LOC: CAR 13:46 | PROVIDERS: Family Provider Family Medicine; PCP Family Medicine; Referring Provider Family Medicine; Visit Provider Family Medicine | DX: Z86.73 Personal history of transient ischemic attack (TIA), and cerebral infarction without residual deficits (principal) | CPT/HCPCS: 93246 ==

== ENCOUNTER → 2024-01-06 07:49 | Outpatient (CLI) | payer OTHER, SELFPAY ==
--- NOTE | 2024-01-06 07:50 | DI.RAD.S_ITS ---
PROCEDURE: XR KNEE RT 3V INDICATIONS: pain TECHNIQUE: 3 views of the knee were acquired. COMPARISON: Located Within [facility], CR, XR KNEE RT 3V, 06/02/2022, 10:25. FINDINGS: Bones: There are no osseous abnormalities. Joints: Moderate patellofemoral and medial tibial femoral degenerative change appreciated. There is mild chondrocalcinosis of the medial meniscus. Chondrocalcinosis of both menisci appreciated more severe on the medial side. Erosive changes in the medial patellar facet are likely degenerative. Small suprapatellar effusion noted Soft tissues: Normal IMPRESSION: Moderate degeneration . Chondrocalcinosis in the menisci which can indicate pseudogout Dictated by: Shahriar Escoto M.D. on 01/06/2024 at 11:48 Approved by: Shahriar Escoto M.D. on 01/06/2024 at 11:49
== END ==
PROVIDERS: Family Provider Family Medicine; PCP Family Medicine; Referring Provider Family Medicine; Visit Provider Family Medicine
DX: M11.261 Other chondrocalcinosis, right knee (principal); M25.461 Effusion, right knee; R52 Pain, unspecified
CPT/HCPCS: 73562